=== PATIENT | female | born 1995 | race Caucasian/White ===

== ENCOUNTER 2018-03-10 22:51 | Emergency (ER) | payer MEDICAID ==
[~2018-03-10] VITALS: Ht 157.5 cm; Wt 70.5 kg
[2018-03-10 22:52] VITALS: BP 138/82
== END 2018-03-10 23:42 ==
LOC: ER 22:51
DX: F10.129 Alcohol abuse with intoxication, unspecified (principal); Z88.1 Allergy status to other antibiotic agents
CPT/HCPCS: 99283

== ENCOUNTER 2022-05-11 11:09 | Day surgery (SDC) | payer MEDICAID ==
[~2022-05-11] VITALS: Ht 157.5 cm; Wt 80.5 kg
[2022-05-11 10:05] VITALS: BP 135/80
[2022-05-11] MEDS ORDERED: LIDOcaine 1% 30ml preserv. free vial SQ STA (11:22)
[2022-05-11] MEDS ORDERED: SERT-432 PO (11:37)
[2022-05-11] MEDS ORDERED: CHOL100017 PO (11:37)
[2022-05-11] MEDS ORDERED: CYAN1TAB69 (11:37)
[2022-05-11] MEDS ORDERED: BUPR300T86 PO (11:37)
[2022-05-11 11:49] VITALS: BP 125/86
[2022-05-11 12:04] VITALS: BP 122/70
[2022-05-11 12:12] VITALS: BP 124/78
== END 2022-05-11 12:30 | disposition home or self-care (01) ==
LOC: SSTAY O 11:09
PROVIDERS: ATTEND Radiology Vascular & Interventional Radiology
DX: Z30.46 Encounter for surveillance of implantable subdermal contraceptive (principal); Z88.1 Allergy status to other antibiotic agents; Z79.899 Other long term (current) drug therapy; Z98.890 Other specified postprocedural states; Z72.89 Other problems related to lifestyle
CPT/HCPCS: 11976; J3490; J7030